=== PATIENT | female | born 1995 | race Asian ===

== ENCOUNTER 2020-07-16 16:54 | Emergency (ER) | payer BC ==
[~2020-07-16] VITALS: Ht 165.1 cm; Wt 65.9 kg
[2020-07-16] MEDS ORDERED: DEPO150I12 IM (17:29)
[2020-07-16] MEDS ORDERED: ACET325T43 PO (17:29)
--- NOTE | 2020-07-16 18:16 | REP ---
INDICATION: trauma, pain with bending. COMPARISON: None. TECHNIQUE: AP, lateral, bilateral oblique and sunrise views. FINDINGS: The osseous structures and joint spaces are intact and appear normal. There is no evidence for acute fracture or dislocation. No joint effusion is appreciated. Surrounding soft tissues are unremarkable. No subcutaneous emphysema or radiodense foreign body. IMPRESSION: No acute fracture or dislocation appreciated. <Electronically signed by Antonio Rios > 07/16/20 0933
[2020-07-16 19:22] VITALS: BP 115/78
== END 2020-07-16 19:23 | disposition home or self-care (01) ==
LOC: M ED 16:54
DX: S83.422A Sprain of lateral collateral ligament of left knee, initial encounter (principal); W01.0XXA Fall on same level from slipping, tripping and stumbling without subsequent striking against object, initial encounter; Y92.9 Unspecified place or not applicable; Y93.9 Activity, unspecified; Y99.9 Unspecified external cause status